=== PATIENT | female | born 1935 | race African-American/Black ===

== ENCOUNTER 2018-04-17 16:29 | Emergency (ER) | payer MEDICARE, OTHER ==
[~2018-04-17] VITALS: Ht 149.9 cm; Wt 75.0 kg
[2018-04-17 19:15] VITALS: BP 168/84
== END 2018-04-17 19:16 | disposition home or self-care (01) ==
LOC: ER 17:49
DX: B02.9 Zoster without complications (principal); I10 Essential (primary) hypertension; M19.90 Unspecified osteoarthritis, unspecified site; Z90.710 Acquired absence of both cervix and uterus
CPT/HCPCS: 99283